=== PATIENT | female | born 1990 | race Caucasian/White ===

== ENCOUNTER 2017-11-13 01:09 | Emergency (ER) | payer OTHER ==
[~2017-11-13] VITALS: Ht 167.6 cm; Wt 63.4 kg
[~2017-11-13 01:09] MED LIST: PEN-VEE K,VEET500 MG PO; ULTRAM50 MG PO
[2017-11-13 01:54] LABS: HEMATOCRIT 37.6 % (36.0-46.0); HEMOGLOBIN 13.3 G/DL (11.9-15.5); MCH 31.4 PG (29.0-34.0); MCHC 35.4 G/DL (30.0-36.0); MCV 88.7 FL (83-99); PLATELET COUNT 171 K/uL (156-360); RBC DIS.WIDTH-CV 11.9 % (11.8-14.6); RBC DIS.WIDTH-SD 38.4 % (39-53); RED BLOOD COUNT 4.24 M/uL (3.80-5.20); WHITE BLOOD COUNT 6.2 K/uL (4.1-10.2)
[2017-11-13 02:15] LABS: TROP-I INTERPRETATION NEGATIVE; TROPONIN-I < 0.01 ng/mL (0.0-0.30)
[2017-11-13 02:17] LABS: CHLORIDE 105 MEQ/L (99-109); POTASSIUM 3.7 MEQ/L (3.7-5.4); SODIUM 138 MEQ/L (136-147)
[2017-11-13 02:23] LABS: CREATININE 0.8 MG/DL (0.6-1.3); GFR ESTIMATE (CALCULATED) > 59 mL/min/; GLUCOSE 116 mg/dL (70-99); UREA NITROGEN (BUN) 8 mg/dL (9-23)
[2017-11-13 04:12] VITALS: BP 123/72
== END 2017-11-13 04:12 | disposition home or self-care (01) ==
LOC: EME 01:09
DX: R07.9 Chest pain, unspecified (principal)
CPT/HCPCS: 71046; 80048; 84484; 85027; 93005; 99281; 99283